=== PATIENT | male | born 1950 | race Caucasian/White ===

== ENCOUNTER 2021-01-27 05:51 | Day surgery (SDC) | payer MEDICARE, BC ==
--- NOTE | 2021-01-26 13:07 | PCM.PREANE ---
Preanesthetic Assessment - Procedure Proposed Procedure: Total Right Hip Arthroplasty - Anesthesia/Transfusion/Family Hx Anesthesia History: Prior Anesthesia Without Reaction Family History of Anesthesia Reaction: No Transfusion History: No Prior Transfusion(s) Intubation History: Unknown - Review of Systems General: No Symptoms Pulmonary: No Symptoms (Quit smoking 1983, ETOH: rarely), Cough (chronic-dry tickling in the throat from post nasal drip.) Cardiovascular: No Symptoms (Elevated cholesterol) Gastrointestinal: No Symptoms (GERD-seldom with tomatoes.), Constipation (Slight.) Neurological: No Symptoms Other: Reports: Easy Bleeding (History of DVT: on coumadin/bridged with lovenox: last coumadin: 01/21/2021 last lovenox: 01/25/2021 QHS.), Easy Bruising, Sinus Problem (post nasal drip) - Physical Assessment NPO Status Date: 01/26/21 NPO Status Time: 17:30 Vital Signs: HR: 93 Sat: 98% Temp: 98.3 B/P: 132/82 Resp: 18 Height: 1.73 m Weight: 71 kg ASA Class: 2 Mental Status: Alert & Oriented x3 Airway Class: Mallampati = 2 Dentition: Reports: Normal Dentition, Cassel(s), Caries Thyro-Mental Finger Breadths: 3 Mouth Opening Finger Breadths: 3 ROM/Head Extension: Full Lungs: Clear to Auscultation, Normal Respiratory Effort Cardiovascular: Regular Rate, Regular Rhythm, No Murmurs - Lab Values: All labs reviewed and noted and within acceptable ranges to proceed with scheduled procedure. - Imaging/EKG Impressions: EKG: SR rate=72 CXR: negative - Anesthesia Plan Pre-Op Medication Ordered: Other (Preop oral meds: (lyrica, oxycontin, tylenol)@) - Acknowledgements Anesthesia Type Planned: Spinal Pt an Appropriate Candidate for the Planned Anesthesia: Yes Alternatives and Risks of Anesthesia Discussed w Pt/Guardian: Yes Pt/Guardian Understands and Agrees with Anesthesia Plan: Yes PreAnesthesia Questionnaire - CURRENT (IN HOUSE) MEDS Current Meds: Current Medications Morphine Sulfate 8 mg/Epinephrine HCl 0.3 mg/Cefuroxime Sodium 750 mg/Ketorolac Tromethamine 30 mg/Sodium Chloride 7.9 ml 0 mg .XX ASDIRECTED PRN PRN Reason: Pain Lactated Ringer's (Ringers, Lactated) 1,000 mls @ 125 mls/hr IV ASDIRECTED KAMARI Lidocaine/Sodium Bicarbonate (Lidocaine 1%/Sod Bicarbonate In Ns 8.4% 1 Ml Syringe) 0.25 ml IDERM ONETIME PRN PRN Reason: Prior to IV Start Sodium Chloride (Sodium Chloride 0.9% 10 Ml Syringe) 10 ml FLUSH ASDIRECTED PRN PRN Reason: Keep Vein Open
[~2021-01-27 05:51] MED LIST: Lactated Ringers 1,000 ML IV SCH; Lidocaine 1%/Sod Bicarbonate in NS 8.4% 1 ML Syringe IDERM PRN; Sodium Chloride 0.9% 10 ML Syringe FLUSH PRN
[2021-01-27] MEDS ORDERED: Acetaminophen 325 MG Tab PO SCH (06:00)
[2021-01-27] MEDS ORDERED: Pregabalin 25 MG Cap PO SCH (06:00)
[2021-01-27] MEDS ORDERED: oxyCODONE ER 10 MG TAB.ER PO SCH (06:00)
[2021-01-27] MEDS ORDERED: Propofol 200 MG/20 ML SDV ONE (06:08)
[2021-01-27] MEDS ORDERED: Midazolam 1 MG/ML 2 ML SDV ONE (06:08)
[2021-01-27] MEDS ORDERED: fentaNYL 100 MCG/2 ML SDV ONE (06:08)
[2021-01-27] MEDS ORDERED: Ondansetron 4 MG/2 ML SDV ONE (06:08)
[2021-01-27] MEDS ORDERED: ceFAZolin 1 GM Vial ONE (06:08)
[2021-01-27] MEDS ORDERED: Lactated Ringers 1,000 ML ONE (06:08)
[2021-01-27] MEDS ORDERED: Ketorolac 30 MG/ML SDV ONE (06:08)
[2021-01-27] MEDS ORDERED: Ketamine 500 mg/10 ML MDV ONE (06:09)
[2021-01-27] MEDS ORDERED: Ondansetron 4 MG/2 ML SDV IVPUSH PRN (07:31)
[2021-01-27] MEDS ORDERED: diphenhydrAMINE 50 MG/ML SDV IVPUSH PRN (07:31)
[2021-01-27] MEDS ORDERED: fentaNYL 100 MCG/2 ML SDV IVPUSH PRN (07:31)
[2021-01-27] MEDS ORDERED: ePHEDrine 50 MG/ML SDV IVPUSH PRN (07:31)
[2021-01-27] MEDS ORDERED: HYDROmorphone 0.5 MG/0.5 ML Syringe IVPUSH PRN (07:31)
[2021-01-27] MEDS ORDERED: Phenylephrine 1% 10 MG/ML SDV ONE (07:34)
[2021-01-27] MEDS: Morphine 8 MG, EPINEPHrine 0.3 MG, Cefuroxime 750 MG, Ketorolac 30 MG, Sodium Chloride ... PRN ×10 (08:00→08:26)
[2021-01-27] MEDS: Vancomycin 1 GM SDV ONE ×2 (08:02→08:26)
--- NOTE | 2021-01-27 09:01 | PCM.POSTAN ---
POST ANESTHESIA ASSESSMENT - MENTAL STATUS Mental Status: Alert - VITAL SIGNS Vital Signs: HR: 87 B/P: 98/70 Sat: 95% on 2LPM nasal cannula Resp: 17 Temp: 98.1 - RESPIRATORY Respiratory Status: Respiratory Rate WNL, Airway Patent, O2 Saturation Stable, Supplemental Oxygen - CARDIOVASCULAR CV Status: Pulse Rate WNL, Blood Pressure Stable - GASTROINTESTINAL GI Status: No Symptoms - POST OP HYDRATION Hydration Status: Adequate & Stable
--- NOTE | 2021-01-27 09:30 | CR ---
Pelvis and right hip: AP view of the pelvis was obtained as well as AP and crosstable lateral views of the right hip. Comparison: Previous CT right hip study of 01/11/21. Right hip prosthesis is noted. Components are aligned. Soft tissue air is seen. No acute osseous abnormality is otherwise appreciated. Impression: 1. Satisfactory postop radiographic appearance of recently placed right hip prosthesis. Diagnostic code #2
--- NOTE | 2021-01-27 12:00 | PCM48HPAN ---
Post Anesthesia Note - EVALUATION WITHIN 48HRS OF ANESTHETIC Vital Signs in Normal Range: Yes Patient Participated in Evaluation: Yes Respiratory Function Stable: Yes Airway Patent: Yes Cardiovascular Function Stable: Yes Hydration Status Stable: Yes Pain Control Satisfactory: Yes Nausea and Vomiting Control Satisfactory: Yes Mental Status Recovered: Yes Vital Signs: Last Vital Signs Temp 36.7 C 01/27/21 09:30 Pulse 80 01/27/21 11:30 Resp 16 01/27/21 11:30 BP 120/76 01/27/21 11:30 Pulse Ox 98 01/27/21 11:30
--- NOTE | 2021-02-10 07:22 | PCM.OPNOTE ---
- General Post-Op/Procedure Note Date of Surgery/Procedure: 01/27/21 Operative Procedure(s): right total hip arthroplasty with [employer] Pre Op Diagnosis: right hip osteoarthrosis Post-Op Diagnosis: Same Anesthesia Technique: Local, MAC, Spinal Primary Surgeon: Fabrice Moffett Anesthesia Provider: Lisa Moura Forensic Artist: Tarsha Young Forensic Artist: Ana Duran EBL in mLs: 150 Complications: None Condition: Good Free Text/Narrative:: 52 5 36+0
--- NOTE | 2021-02-11 08:19 | OR ---
DATE OF OPERATION: 01/27/2021 SURGEON: Fabrice Moffett MD OPERATION PERFORMED: Right total hip arthroplasty with [employer]. PREOPERATIVE DIAGNOSIS: Right hip osteoarthrosis. POSTOPERATIVE DIAGNOSIS: Right hip osteoarthrosis. ANESTHESIA: Local MAC with spinal. ANESTHESIA PROVIDER: Lisa Moura CRNA ASSISTANTS: Tarsha Young PA-C and Ana Duran LPN. ESTIMATED BLOOD LOSS: 150 mL. COMPLICATIONS: None. CONDITION: Stable. IMPLANTS: 1. Savannah size 52 mm solid Tritanium II acetabular cup. 2. Robel size 5 Accolade II stem. 3. Savannah size 36, +0 Biolox femoral head. DESCRIPTION OF PROCEDURE: The patient was identified in the preoperative holding area. Proper site was marked and identified by the surgeon. The patient was taken back to the operating theater where after adequate anesthesia, the patient was placed in the left lateral decubitus position. Axillary roll was placed. Pegs were then placed and well padded. The patient's gluteal fold was parallel to the floor. Right hip was then sterilely prepped and draped in the usual sterile fashion. OR time-out was performed. The patient received 2 g IV Ancef. At this time, 3 small poke holes were made on the iliac crest 3 fingerbreadths posterior to the ASIS. There 4.0 Schanz pins were then placed, and a [employer] robotic array and checkpoint were then placed down onto the iliac crest. A standard posterior incision was made centered over the greater trochanter. This was taken down to the IT band and gluteal fascia. This was incised along the incisional length. Charnley retractor was then placed. Short external rotators were identified. Checkpoint was placed in the greater trochanter to measure leg lengths with the [employer] robot[employer]. Short external rotators were taken down as well as capsulotomy was performed from the level of the piriformis down to the lesser trochanter. Hip was then dislocated. Neck cut was completed and found to be adequate. Attention was turned to the acetabulum. Anterior and posterior acetabular retractors were then placed. Circumferential removal of labrum as well as pulvinar were removed at this time. At this time, checkpoint was placed on the superior rim of the acetabulum. Fifteen points were taken intra- articularly and extra-articularly from the acetabulum, and a [employer] robotic arm was brought in with a 52 mm reamer. The reaming was completed until all green was done from the [employer] robotic plan with just a small rim the red. At this time, the 52 mm cup was placed on the [employer] robotic arm. It was impacted into place at 45 degrees of abduction and 20 degrees of anteversion. It was found to have adequate fixation. A 36 flat liner was then impacted into place. Attention was turned to the femur. Box chisel was used out laterally. Starter awl was placed down the canal. Starting with the 0 broach, I was able to broach up to a size 5, which was found to be rotationally and vertically stable. A 127-degree trial neck as well as the 36, +0 trial was placed. The patient had adequate voodoo of leg lengths and was stable throughout range of motion once it was relocated. Hip was then dislocated again. Trial implants were removed. Size 5 Accolade II stem was impacted into place along with a 36, +0 Biolox femoral head. Hip was then relocated. #5 Ethibond suture was used for closure of short external rotators and capsule. 1 L of pulse lavage irrigation with Ancef was irrigated through the hip along with 400 mL of IrriSept irrigation. Topical tranexamic acid and vancomycin powder were applied. Periarticular injection was completed. #2 barbed suture was used for closure of the IT band and gluteal fascia. 2-0 Vicryl was used subcutaneously, and Prineo was used for skin closure. The patient had all [employer] robotic arrays and checkpoints removed before closure. 3-0 nylon was used to close the focal incisions on the ASIS. Sterile soft dressing was applied. The patient was sent to PACU in stable condition. MARGARITA /[id number]
== END 2021-01-27 12:50 | disposition home or self-care (01) ==
LOC: JD.SDS 05:51
PROVIDERS: ATTEND Orthopaedic Surgery
DX: M16.11 Unilateral primary osteoarthritis, right hip (principal); I82.439 Acute embolism and thrombosis of unspecified popliteal vein
CPT/HCPCS: 01214; 36415; 73501-26-RT; 73501-RT; 85610; 85730; 86850; 86900; 86901; 97110-GP; 97116-GP; 97161-GP; A9270-GY; C1713; C1776; J0171; J0690; J0697; J1885; J2250; J2270; J2370; J2405; J2704; J3010; J3370; J7120

== ENCOUNTER 2023-01-25 07:20 | Day surgery (SDC) | payer MEDICARE, BC ==
[~2023-01-25 07:20] MED LIST changes: -Lactated Ringers 1,000 ML IV SCH; -Lidocaine 1%/Sod Bicarbonate in NS 8.4% 1 ML Syringe IDERM PRN; +Morphine 8 MG, EPINEPHrine 0.3 MG, Cefuroxime 750 MG, Ketorolac 30 MG, Sodium Chloride ... PRN; +Sodium Chloride 0.9% 10 ML Syringe FLUSH SCH
[2023-01-25] MEDS ORDERED: Pregabalin 25 MG Cap PO ONE (07:30)
[2023-01-25] MEDS ORDERED: oxyCODONE ER 10 MG TAB.ER PO ONE (07:30)
[2023-01-25] MEDS ORDERED: Acetaminophen 325 MG Tab PO ONE (07:30)
[2023-01-25] MEDS: Lactated Ringers 1,000 ML IV SCH ×2 (08:15→11:35)
[2023-01-25] MEDS ORDERED: Vancomycin 1 GM SDV ONE (08:24)
[2023-01-25] MEDS ORDERED: Tranexamic Acid 1,000 MG/10 ML Vial ONE (08:24)
[2023-01-25 08:53] LABS: INR 0.94; PROTHROMBIN TIME 10.1 SECONDS (9.7-12.0)
[2023-01-25 08:54] LABS: PTT,PARTIAL THROMBOPLSTIN TIME 28.9 SECONDS (21.7-31.4)
[2023-01-25] MEDS ORDERED: Propofol 200 MG/20 ML SDV ONE ×2 (09:44→09:45)
[2023-01-25] MEDS ORDERED: Midazolam 1 MG/ML 2 ML SDV ONE (09:44)
[2023-01-25] MEDS ORDERED: fentaNYL 100 MCG/2 ML SDV ONE (09:44)
[2023-01-25] MEDS ORDERED: Lidocaine 1% 4 ML ONE (09:44)
[2023-01-25] MEDS ORDERED: ceFAZolin 2 GM Vial ONE (10:21)
[2023-01-25] MEDS ORDERED: oxyCODONE 5 MG Tab PO PRN (11:33)
== END 2023-01-25 14:50 | disposition home or self-care (01) ==
LOC: JD.SDS 07:20
PROVIDERS: ATTEND Orthopaedic Surgery
DX: M16.12 Unilateral primary osteoarthritis, left hip (principal); H61.20 Impacted cerumen, unspecified ear; I74.3 Embolism and thrombosis of arteries of the lower extremities; Z79.82 Long term (current) use of aspirin; Z79.899 Other long term (current) drug therapy; Z88.2 Allergy status to sulfonamides; Z87.891 Personal history of nicotine dependence
CPT/HCPCS: 0055T; 27130; 36415; 73501; 85610; 85730; 86850; 86900; 86901; 97116; 97161; A9270; C1713; C1776; J0171; J0690; J0697; J1885; J2250; J2270; J2704; J3010; J3370; J7030; J7120; 01214; J3490

== ENCOUNTER 2023-12-17 10:23 | Day surgery (SDC) | payer MEDICARE, BC ==
[~2023-12-17 10:23] MED LIST changes: +Lactated Ringers 1,000 ML IV SCH; +Lidocaine 1% 5 ML VIAL ONE; +Midazolam 1 MG/ML 2 ML SDV ONE; -Morphine 8 MG, EPINEPHrine 0.3 MG, Cefuroxime 750 MG, Ketorolac 30 MG, Sodium Chloride ... PRN; +Propofol 200 MG/20 ML SDV ONE; +ePHEDrine 50 MG/ML SDV ONE; +fentaNYL 100 MCG/2 ML SDV ONE
[2023-12-17] MEDS ORDERED: Ketorolac 15 MG/ML SDV ONE ×2 (10:33→13:49)
[2023-12-17] MEDS: Lactated Ringers 1,000 ML IV SCH (11:00)
[2023-12-17] MEDS ORDERED: fentaNYL 100 MCG/2 ML SDV IVPUSH PRN (11:52)
[2023-12-17] MEDS ORDERED: Ondansetron 4 MG/2 ML SDV IVPUSH PRN (11:52)
[2023-12-17] MEDS ORDERED: HYDROmorphone 0.5 MG/0.5 ML Syringe IVPUSH PRN (11:52)
[2023-12-17] MEDS ORDERED: ceFAZolin 2 GM Vial ONE (11:58)
[2023-12-17] MEDS ORDERED: Dexamethasone 4 MG/ML 5 ML MDV ONE (12:02)
[2023-12-17] MEDS ORDERED: Ondansetron 4 MG/2 ML SDV ONE (12:02)
[2023-12-17] MEDS: Bupivacaine 0.25% 10 ML SDV ONE (12:16)
[2023-12-17] MEDS ORDERED: ePHEDrine 50 MG/ML SDV ONE (12:54)
[2023-12-17] MEDS ORDERED: Lactated Ringers 1,000 ML ONE (13:17)
[2023-12-17] MEDS ORDERED: HYDROmorphone 0.5 MG/0.5 ML Syringe ONE (13:19)
[2023-12-17] MEDS ORDERED: fentaNYL 100 MCG/2 ML SDV ONE (13:20)
[2023-12-17] MEDS ORDERED: Acetaminophen/HYDROcodone 325-5 MG Tab PO PRN (13:29)
== END 2023-12-17 16:11 | disposition home or self-care (01) ==
LOC: JD.SDS 10:23
PROVIDERS: ATTEND Orthopaedic Surgery
DX: M20.21 Hallux rigidus, right foot (principal); E78.00 Pure hypercholesterolemia, unspecified; Z87.891 Personal history of nicotine dependence; Z79.899 Other long term (current) drug therapy
CPT/HCPCS: 28750; 76000; C1713; J0665; J0690; J1100; J1170; J1885; J2250; J2405; J2704; J3010; J7120; 01480; J3490